=== PATIENT | male | born 2005 | race Hispanic/Latino ===

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

== ENCOUNTER 2025-02-17 07:32 | Emergency (ER) | payer MEDICAID, OTHER ==
[~2025-02-17] VITALS: Ht 185.4 cm; Wt 82.3 kg
--- NOTE | 2025-02-17 07:42 | NUR ---
PLEASE REFER TO TRAUMA FLOW SHEET.
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
--- NOTE | 2025-02-17 08:44 | HMCIMG ---
EXAM: CR Chest, single view CLINICAL HISTORY: Fall. COMPARISON: None provided. FINDINGS: The lungs show no infiltrate or other acute findings. No pleural effusion or pneumothorax. The cardiomediastinal silhouette is within normal limits. No acute osseous abnormality. IMPRESSION: No acute cardiopulmonary pathology is evident. /[place]
--- NOTE | 2025-02-17 08:45 | HMCIMG ---
EXAM: CR Cervical spine, 3 views. CLINICAL HISTORY: Fall. COMPARISON: None provided. FINDINGS: Cervical alignment is within normal limits. Normal intervertebral disc spaces. Normal vertebral body heights. No acute fracture. Loss of cervical lordosis is probably secondary to muscular spasm or positioning. The prevertebral soft tissues are within normal limits. The included lungs are clear. IMPRESSION: No acute bony changes. Loss of cervical lordosis, probably secondary to muscular spasm or positioning. /[place]
--- NOTE | 2025-02-17 08:52 | NUR ---
PER YARELIS GARCIA TO GIVE ROCEPHIN IV SINCE PATIENT HAS 18 G IV LINE ON LT AC, PATIENT RESTING IN BED, MOTHER AT BEDSIDE
--- NOTE | 2025-02-17 08:53 | HMCIMG ---
EXAM: CR Right Elbow, 3 views. CLINICAL HISTORY: Fall COMPARISON: None provided. FINDINGS: No acute fracture or aggressive appearing osseous lesion. Joint spaces are within normal limits. No radiographic evidence of joint effusion. The soft tissues are unremarkable. IMPRESSION: No acute osseous abnormality. /[place]
--- NOTE | 2025-02-17 08:54 | HMCIMG ---
EXAM: CR left Elbow, 3 views. CLINICAL HISTORY: Fall. COMPARISON: None provided. FINDINGS: No acute fracture or aggressive appearing osseous lesion. Joint spaces are within normal limits. No radiographic evidence of joint effusion. The soft tissues are unremarkable. IMPRESSION: No acute osseous abnormality. /[place]
--- NOTE | 2025-02-17 08:55 | HMCIMG ---
EXAM: CR bilateral hips 2 views. CLINICAL HISTORY: Fall. COMPARISON: None provided. FINDINGS: No acute fracture or aggressive appearing osseous lesion. Joint spaces are within normal limits. The soft tissues are unremarkable. IMPRESSION: No acute osseous abnormality. /[place]
[2025-02-17] MEDS ORDERED: CEPH500B PO (09:14)
[2025-02-17] MEDS: NEOMY SULF/BACITRA/POLYMYXIN B 1 EACH PACKET TP ONE (10:24)
--- NOTE | 2025-02-17 10:36 | NUR ---
REFER TO TRAUMA FLOW SHEET FOR VITAL SIGNS
[2025-02-17 10:42] VITALS: BP 131/84; PULSE 68; RESP 12; TEMP 98.3; O2SAT 99
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
== END 2025-02-17 10:52 | disposition home or self-care (01) ==
LOC: EDH 07:32
DX: S76.011A Strain of muscle, fascia and tendon of right hip, initial encounter (principal); S50.311A Abrasion of right elbow, initial encounter; V29.99XA Rider (driver) (passenger) of other motorcycle injured in unspecified traffic accident, initial encounter; Y93.89 Activity, other specified; Y92.89 Other specified places as the place of occurrence of the external cause; Y99.8 Other external cause status
CPT/HCPCS: 99284; 71045; 90714; 72040; 73080 ×2; 73522; 96372; 90471; J0696 ×2